=== PATIENT | male | born 1945 | race Caucasian/White ===

== ENCOUNTER 2018-03-11 17:22 | Inpatient (IN) | payer MEDICARE, OTHER ==
[~2018-03-11] VITALS: Ht 180.3 cm; Wt 64.0 kg
[2018-03-11 18:22] LABS: BASOPHILS % (AUTO) 0.3 % (0.0-2.0); HEMATOCRIT 36 % (39-51); HEMOGLOBIN 12.4 g/dL (13.5-17.5); LYMPHOCYTES # (AUTO) 0.9 /CMM (0.8-4.8); LYMPHOCYTES % (AUTO) 13.1 % (20.0-44.0); MEAN CORPUSCULAR HGB CONC 34 g/dl (31.0-36.0); MEAN CORPUSCULAR VOLUME 87 fL (80-96); MONOCYTES # (AUTO) 0.7 /CMM (0.1-1.30); NEUTROPHILS # (AUTO) 5.2 /CMM (1.8-8.9); NEUTROPHILS % (AUTO) 75.6 % (43.0-81.0); PLATELET COUNT (AUTO) 278 /CMM (150-450); RED BLOOD CELL COUNT(AUTO) 4.16 MIL/uL (4.5-6.0); WHITE BLOOD COUNT (AUTO) 6.9 K/uL (4.3-11.0)
[2018-03-11 18:33] LABS: CARBON DIOXIDE 29 mmol/L (21-32); CHLORIDE 103 mmol/L (98-107); CREATININE 0.7 mg/dL (0.6-1.3); GLUCOSE 105 mg/dL (74-106); POTASSIUM 3.7 mmol/L (3.5-5.1); SODIUM SERUM 139 mmol/L (136-145); UREA NITROGEN, BLOOD 18 mg/dL (7-18)
[2018-03-11 18:39] LABS: ALANINE AMINOTRANSFERASE 16 U/L (12-78); ALBUMIN 3.4 g/dL (3.4-5.0); ALCOHOL, BLOOD < 3 mg/dL (0-0); ALKALINE PHOSPHATASE 74 U/L (46-116); ASPARTATE AMINOTRANSFERASE 17 U/L (15-37); BILIRUBIN,DIRECT 0.2 mg/dL (0.0-0.2); BILIRUBIN,TOTAL 0.8 mg/dL (0.2-1.0); TOTAL PROTEIN, SERUM 6.8 g/dL (6.4-8.2)
[2018-03-11 18:40] LABS: ACETAMINOPHEN < 2 ug/ml (10-30); SALICYLATE < 2.8 mg/dL (2.8-20.0)
--- NOTE | 2018-03-11 19:12 | NUR ---
Note molina in ED - 03/11/18 at 1912 by WALTER BIBPA FROM [facility] D/T AGGRESSIVE BEHAVIOR, FOR 5150 Addendum: 03/11/18 at 1911 by WALTER Amendment molina in [facility] - 03/11/18 at 1912 by WALTER BIBPA FROM [facility] D/T AGGRESSIVE BEHAVIOR, FOR 5150
--- NOTE | 2018-03-11 19:18 | NUR ---
PT BIBPA FOR AGGRESSIVE BEHAVIOR FOR 4590
--- NOTE | 2018-03-11 19:24 | NUR ---
HANDOFF GIVEN TO BOSTON CRUZ FOR FURTHER CARE
--- NOTE | 2018-03-11 19:53 | NUR ---
UNABLE TO OBTAIN URINE. MADE AWARE.
[2018-03-11 20:00] VITALS: BP 126/46
--- NOTE | 2018-03-11 21:53 | NUR ---
REPORT GIVEN TO BOSTON VASQUEZ FOR DEQUAN
[2018-03-11] MEDS ORDERED: MAGNESIUM HYDROXIDE 30 ML UDC PO PRN (22:30)
[2018-03-11] MEDS ORDERED: MAG HYDROX/AL HYDROX/SIMETH 30 ML UDC PO PRN (22:30)
[2018-03-11] MEDS ORDERED: ACETAMINOPHEN 325 MG TABLET PO PRN (22:30)
[2018-03-11] MEDS ORDERED: HYDR-4075 PO (22:36)
[2018-03-11] MEDS ORDERED: LORA1TAB PO (22:36)
[2018-03-11] MEDS ORDERED: HALO5TAB8 PO (22:36)
[2018-03-11] MEDS ORDERED: HYDR25TA4 PO (22:36)
[2018-03-11] MEDS ORDERED: RIVA10TA PO (22:36)
[2018-03-11] MEDS ORDERED: BENZ1TAB7 PO (22:36)
[2018-03-11] MEDS ORDERED: DOCU100C36 PO (22:36)
[2018-03-11] MEDS ORDERED: SIMV20TA6 PO (22:36)
[2018-03-11] MEDS ORDERED: RIVA3CAP5 PO (22:36)
[2018-03-11] MEDS ORDERED: DIVA125C5 PO (22:36)
[2018-03-11] MEDS ORDERED: OLAN5TAB3 (22:36)
[2018-03-11] MEDS ORDERED: [UNRECOGNIZED DRUG - CODE] PO (22:36)
[2018-03-11] MEDS ORDERED: LISI-603 PO (22:36)
--- NOTE | 2018-03-11 23:30 | NUR ---
ADMISSION NOTES ADMITTED THIS 72 Y/O MALE PATIENT SOH ER AND INTIALLY FROM [facility] , PT IS ON 5150 HOLD , PER HOLD 5150 , GD DTO AND COMBATIVE, AGITATED, UNABLE TO SLEEP ,RESTLESS THE PT. WAS ACTING AGGRESSIVE AT THE FACILITY AND PUNCHED A STAFF MEMEBER ,AND PT. ATTEMPTED TO ESCAPE FROM THE FACILITY , UPON FACE TO FACE ASSESSMENT PATIENT IS A&O X-1 UNCOOPERTIVE, AGGRESSIVE FLAT AFFECT ,EASILY AGITATED , PT.IS POOR HISTORIAN, POOR INSIGHT ,POOR JUDGEMENT ,V/S WNL, NO ACUTE DISTRESS NOTED , MD AWARE AND NOTIFIED OF THE ADMISSION , ENCOURAGED PT. VERBALIZED ANY FEELING CONCERN TO STAFF, ORIENT TO UNIT POLICY, WILL CONTINUE TO MONITOR FOR Q15, CONTRACT FOR SAFETY AND BEHAVIOR.
[2018-03-12 00:11] VITALS: BP 130/72
[2018-03-12] MEDS ORDERED: DIVALPROEX SODIUM 125 MG CAP.SPRINK PO SCH (00:30)
--- NOTE | 2018-03-12 06:28 | NUR ---
GPS RN NOTES: PT. REFUSED TO PROVIDE URINE SPECIMEN , PT. CAME WITH MULTIPLE SKIN DISCOLORATION BRUISES NOTED, PICTURE TAKEN AND PLACED IN THE CHART. NO ACUTE DISTRESS NOTED , WILL ENDORSE TO ON COMING NURSE FOR CONTINUE OF CARE.
--- NOTE | 2018-03-12 06:52 | NUR ---
GPS RN NOTES: DURING SHIFT CHARGE NURSE [place] FOR DR. PARK CALLED X2 , WAITING CALLED BACK , ENDORSE TO ON COMING NURSE TO FOLLOW UP .
[2018-03-12 07:46] LABS: CHOLESTEROL 107 mg/dL (<200); HDL CHOLESTEROL 42 mg/dL (40-60); LDL 62 mg/dL (0-99); TRIGLYCERIDES 33 mg/dL (30-150)
[2018-03-12 07:49] LABS: CREATININE 0.7 mg/dL (0.6-1.3)
[2018-03-12 08:00] VITALS: BP 144/66
[2018-03-12] MEDS ORDERED: BENZTROPINE MESYLATE (1 MG) 1 MG TABLET PO SCH (09:00)
[2018-03-12] MEDS ORDERED: FELODIPINE 2.5 MG TAB.SR.24H PO SCH (09:00)
[2018-03-12] MEDS: RIVASTIGMINE TARTRATE 1.5 MG CAPSULE PO SCH ×3 (09:00→18:03)
--- NOTE | 2018-03-12 09:13 | NUR ---
WOUND CARE CONSULT: PT PRESENTS WITH DRY ABRASIONS AND SCABS TO EXTREMITIES AND LEFT EAR, PRESENT ON ADMISSION. RECOMMENDATIONS MADE FOR SKIN PROTECTION. DISCUSSED WITH NURSING STAFF. WILL SEE PRN. GOMEZ IN AGREEMENT WITH PLAN OF CARE. CURRENT VLAD SCORE IS 19. Addendum: 03/12/18 at 0915 by LIA PICKETT WNDNU Amended: Links added.
[2018-03-12] MEDS ORDERED: Z GUARD REMEDY 2 OZ OINT TP PRN (09:30)
[2018-03-12] MEDS: DOCUSATE SODIUM 100 MG CAPSULE PO SCH (09:38)
[2018-03-12] MEDS: LISINOPRIL (20MG) 20 MG TABLET PO SCH (09:38)
[2018-03-12] MEDS: hydrALAZINE HCL 10 MG TABLET PO PRN (09:39)
[2018-03-12] MEDS: RIVAROXABAN 10 MG TABLET PO SCH (09:39)
[2018-03-12] MEDS: HYDROCHLOROTHIAZIDE 25 MG TABLET PO SCH (09:45)
[2018-03-12] MEDS: Z GUARD REMEDY 2 OZ OINT TP SCH (10:15)
--- NOTE | 2018-03-12 13:30 | NUR ---
DAYANA called the pt's , Belia ([phone]), and discussed the initial treatment plan for the pt. Pt's stated that she would like for the pt to return to [facility] when he is cleared for discharge. DAYANA asked for the personal lines insurance advisor of the facility so that she could verify that the facility would be willing to accept the pt back.
--- NOTE | 2018-03-12 13:33 | NUR ---
DAYANA called Iris ([phone]), [facility] Elder Trimming Assembler, and inquired about whether or not the pt can return when he is cleared for discharge. She stated that he is and that she would like to be updated regarding his behaviors when we approach his discharge date.
[2018-03-12] MEDS: ESCITALOPRAM OXALATE (10 MG) 10 MG TABLET PO SCH (15:30)
[2018-03-12 16:00] VITALS: BP 107/77
[2018-03-12] MEDS: ZIPRASIDONE 20 MG CAPSULE PO SCH (17:00)
[2018-03-12 20:55] VITALS: BP 115/70
[2018-03-12] MEDS: SIMVASTATIN 20 MG TABLET PO SCH (21:16)
[2018-03-13] MEDS: ZOLPIDEM TARTRATE 5 MG TABLET PO PRN ×2 (01:56→22:38)
[2018-03-13 08:00] VITALS: BP 103/50
[2018-03-13] MEDS: RIVASTIGMINE TARTRATE 1.5 MG CAPSULE PO SCH ×2 (08:18→16:12)
[2018-03-13] MEDS: DOCUSATE SODIUM 100 MG CAPSULE PO SCH (08:18)
[2018-03-13] MEDS: ESCITALOPRAM OXALATE (10 MG) 10 MG TABLET PO SCH (08:18)
[2018-03-13] MEDS: ZIPRASIDONE 20 MG CAPSULE PO SCH ×2 (08:18→22:08)
[2018-03-13] MEDS: LISINOPRIL (20MG) 20 MG TABLET PO SCH (08:19)
[2018-03-13] MEDS: RIVAROXABAN 10 MG TABLET PO SCH (08:21)
[2018-03-13] MEDS: Z GUARD REMEDY 2 OZ OINT TP SCH (08:25)
[2018-03-13] MEDS: DIVALPROEX SODIUM 250 MG TABLET.DR PO SCH ×2 (08:26→13:00)
[2018-03-13] MEDS: HYDROCHLOROTHIAZIDE 25 MG TABLET PO SCH (09:00)
[2018-03-13] MEDS ORDERED: FELODIPINE 2.5 MG TAB.SR.24H PO SCH (09:00)
[2018-03-13] MEDS: AMLODIPINE BESYLATE 5 MG TABLET PO SCH (09:00)
--- NOTE | 2018-03-13 15:07 | NUR ---
Group note: Pt attended a group session on 03/13/18 at 11AM discussing the topic of what gives them meaning in their lives and what they are looking forward to once they get discharged from the hospital. S: Pt mumbled on and on about something that did not appear to be related to the discussion topic. O: Pt was present during the group session and was attentive. Pt did not participate in the discussion topic. Pt appeared to be in a euthymic mood and presented with a calm affect. A: It is unknown if the pt gained any insight from his presence in the group discussion. P: Pt will continue milieu treatment and medication stabilization.
[2018-03-13 16:00] VITALS: BP 121/80
[2018-03-13 19:59] VITALS: BP 123/70
[2018-03-13] MEDS: SIMVASTATIN 20 MG TABLET PO SCH (22:08)
[2018-03-14 08:00] VITALS: BP 153/73
[2018-03-14] MEDS: DOCUSATE SODIUM 100 MG CAPSULE PO SCH (08:28)
[2018-03-14] MEDS: RIVASTIGMINE TARTRATE 1.5 MG CAPSULE PO SCH ×2 (08:28→16:09)
[2018-03-14] MEDS: ESCITALOPRAM OXALATE (10 MG) 10 MG TABLET PO SCH (08:28)
[2018-03-14] MEDS: LISINOPRIL (20MG) 20 MG TABLET PO SCH (08:29)
[2018-03-14] MEDS: HYDROCHLOROTHIAZIDE 25 MG TABLET PO SCH (08:29)
[2018-03-14] MEDS: AMLODIPINE BESYLATE 5 MG TABLET PO SCH (08:29)
[2018-03-14] MEDS: RIVAROXABAN 10 MG TABLET PO SCH (08:30)
[2018-03-14] MEDS: Z GUARD REMEDY 2 OZ OINT TP SCH (08:35)
--- NOTE | 2018-03-14 10:58 | NUR ---
Initial Discharge Plan: Pt currently resides at [facility] located at [address] [place] [address]; ([phone]). Per Iris ([phone]), the research associate policy of [facility], stated that the pt can return there. Pt's , Belia ([phone]), stated she would like the pt to return as well. SW will work with the pt and the MD for appropriate discharge planning. SW will form a safe and proper discharge.
[2018-03-14 16:00] VITALS: BP 157/84
[2018-03-14] MEDS: hydrALAZINE HCL 10 MG TABLET PO PRN (16:09)
[2018-03-14 20:00] VITALS: BP 123/74
[2018-03-14] MEDS: LORAZEPAM 1 MG TABLET PO PRN (21:31)
[2018-03-14] MEDS: SIMVASTATIN 20 MG TABLET PO SCH (21:31)
[2018-03-14] MEDS: ZIPRASIDONE 20 MG CAPSULE PO SCH (21:31)
--- NOTE | 2018-03-14 22:09 | NUR ---
ATIVAN 1 MG TAB 1 PO GIVEN FOR ANXIETY.
[2018-03-15 08:00] VITALS: BP 151/76
[2018-03-15] MEDS: HYDROCHLOROTHIAZIDE 25 MG TABLET PO SCH (09:49)
[2018-03-15] MEDS: ESCITALOPRAM OXALATE (10 MG) 10 MG TABLET PO SCH (09:50)
[2018-03-15] MEDS: LISINOPRIL (20MG) 20 MG TABLET PO SCH (09:50)
[2018-03-15] MEDS: RIVASTIGMINE TARTRATE 1.5 MG CAPSULE PO SCH ×2 (09:50→16:31)
[2018-03-15] MEDS: DOCUSATE SODIUM 100 MG CAPSULE PO SCH (09:50)
[2018-03-15] MEDS: AMLODIPINE BESYLATE 5 MG TABLET PO SCH (09:50)
[2018-03-15] MEDS: Z GUARD REMEDY 2 OZ OINT TP SCH (09:51)
[2018-03-15] MEDS: RIVAROXABAN 10 MG TABLET PO SCH (09:58)
[2018-03-15 16:00] VITALS: BP 116/68
[2018-03-15 20:00] VITALS: BP 106/57
[2018-03-15] MEDS: SIMVASTATIN 20 MG TABLET PO SCH (21:11)
[2018-03-15] MEDS: ZIPRASIDONE 20 MG CAPSULE PO SCH (21:11)
[2018-03-15] MEDS: ZOLPIDEM TARTRATE 5 MG TABLET PO SCH (21:12)
[2018-03-16 08:00] VITALS: BP 117/60
[2018-03-16] MEDS: RIVASTIGMINE TARTRATE 1.5 MG CAPSULE PO SCH ×2 (08:31→16:38)
[2018-03-16] MEDS: DOCUSATE SODIUM 100 MG CAPSULE PO SCH (08:31)
[2018-03-16] MEDS: LISINOPRIL (20MG) 20 MG TABLET PO SCH (08:32)
[2018-03-16] MEDS: HYDROCHLOROTHIAZIDE 25 MG TABLET PO SCH (08:32)
[2018-03-16] MEDS: ESCITALOPRAM OXALATE (10 MG) 10 MG TABLET PO SCH (08:32)
[2018-03-16] MEDS: AMLODIPINE BESYLATE 5 MG TABLET PO SCH (08:32)
[2018-03-16] MEDS: RIVAROXABAN 10 MG TABLET PO SCH (08:36)
[2018-03-16] MEDS: Z GUARD REMEDY 2 OZ OINT TP SCH (08:37)
[2018-03-16 16:00] VITALS: BP 124/51
[2018-03-16 20:00] VITALS: BP 120/73
[2018-03-16] MEDS: SIMVASTATIN 20 MG TABLET PO SCH (22:14)
[2018-03-16] MEDS: ZOLPIDEM TARTRATE 5 MG TABLET PO SCH (22:14)
[2018-03-16] MEDS: ZIPRASIDONE 20 MG CAPSULE PO SCH (22:14)
[2018-03-17 08:00] VITALS: BP 154/88
[2018-03-17] MEDS: RIVAROXABAN 10 MG TABLET PO SCH (09:42)
[2018-03-17] MEDS: HYDROCHLOROTHIAZIDE 25 MG TABLET PO SCH (09:42)
[2018-03-17] MEDS: LISINOPRIL (20MG) 20 MG TABLET PO SCH (09:43)
[2018-03-17] MEDS: ESCITALOPRAM OXALATE (10 MG) 10 MG TABLET PO SCH (09:43)
[2018-03-17] MEDS: RIVASTIGMINE TARTRATE 1.5 MG CAPSULE PO SCH ×2 (09:43→16:44)
[2018-03-17] MEDS: DOCUSATE SODIUM 100 MG CAPSULE PO SCH (09:43)
[2018-03-17] MEDS: AMLODIPINE BESYLATE 5 MG TABLET PO SCH (09:45)
[2018-03-17] MEDS: Z GUARD REMEDY 2 OZ OINT TP SCH (09:46)
[2018-03-17 16:00] VITALS: BP 100/61
[2018-03-17 20:00] VITALS: BP 120/71
[2018-03-17] MEDS: ZIPRASIDONE 20 MG CAPSULE PO SCH (21:13)
[2018-03-17] MEDS: SIMVASTATIN 20 MG TABLET PO SCH (21:13)
[2018-03-17] MEDS: ZOLPIDEM TARTRATE 5 MG TABLET PO SCH (21:14)
[2018-03-18 08:00] VITALS: BP 147/80
[2018-03-18] MEDS: DOCUSATE SODIUM 100 MG CAPSULE PO SCH (08:13)
[2018-03-18] MEDS: RIVASTIGMINE TARTRATE 1.5 MG CAPSULE PO SCH ×2 (08:13→16:09)
[2018-03-18] MEDS: LISINOPRIL (20MG) 20 MG TABLET PO SCH (08:16)
[2018-03-18] MEDS: AMLODIPINE BESYLATE 5 MG TABLET PO SCH (08:16)
[2018-03-18] MEDS: ESCITALOPRAM OXALATE (10 MG) 10 MG TABLET PO SCH (08:17)
[2018-03-18] MEDS: RIVAROXABAN 10 MG TABLET PO SCH (08:18)
[2018-03-18] MEDS: HYDROCHLOROTHIAZIDE 25 MG TABLET PO SCH (08:20)
[2018-03-18] MEDS: Z GUARD REMEDY 2 OZ OINT TP SCH (08:24)
--- NOTE | 2018-03-18 10:00 | NUR ---
gps greens picker: notes noted right outer eye with a bruise (purple) 0.5cmx0.cm and above it noted with fading yellow discoloration when you light it close with a pen light. bruise appears old. cn aware and assessed site. photo taken. per drafter civil (cad) (sitter) the old fading bruise has been observed for days now. will continue to monitor. sitter remains at bedside.
[2018-03-18 16:00] VITALS: BP 126/66
--- NOTE | 2018-03-18 16:15 | NUR ---
GPS JAVA WEB USER INTERFACE DEVELOPER: NOTES MOVED PT TO GPS OV TO ROOM 205-1 WITH ALL BELONGINGS. REPORT GIVEN TO CHADWICK (RN) FOR CONTINUITY OF CARE.
--- NOTE | 2018-03-18 16:22 | NUR ---
GPS/OF. PT RECEIVED ALERT TO NAME, FOLLOWING BASIC COMMANDS. PT WITH 1:1. PT MADE COMFORTABLE. PT WITH CHART AND ALL BELONGINGS. WILL CONTINUE POC.
--- NOTE | 2018-03-18 16:23 | NUR ---
DAYANA called Iris ([phone]), [facility] Inspector Multifocal Lens, and left her a message stating that the SW was informed that the pt is discharging tomorrow and that someone from the facility was going to come and assess the pt. DAYANA asked for a call back so that she can plan the discharge accordingly.
--- NOTE | 2018-03-18 16:29 | NUR ---
DAYANA called the pt's , Belia ([phone]), and informed her that the pt may or may not be discharged tomorrow. She stated that she would follow up with the fur machine operator and let the SW know.
--- NOTE | 2018-03-18 18:23 | NUR ---
GPS OVF. PT REMAINS CONFUSED, WANDERING IN ROOM OR RESTING IN BED. PT NON VERBAL SINCE ARRIVAL. PT TOLERATING ROOM AIR AND IS WITHOUT OBVIOUS DISTRESS OR DISCOMFORT. PT WITH 1:1 FOR SAFETY. PT BED IN LOWEST LOCKED POSITION WITH HANDRIALSX2 AND CALL ONEIL WITHIN REACH. WILL ENDORSE TO NIGHT NURSE AT BEDSIDE FOR DEQUAN.
--- NOTE | 2018-03-18 19:30 | NUR ---
GPS OVERFLOW RN NOTE: PATIENT RESTING IN BED, NO ACUTE DISTRESS NOTED. BREATHING EVEN AND UNLABORED, NO SOB NOTED. SITTER AT BEDSIDE. PATIENT CALM AND COOPERATIVE AT THIS TIME. BED LOCKED AND IN LOWEST POSITION, CALL LIGHT IN REACH. WILL CONTINUE TO MONITOR.
[2018-03-18 20:00] VITALS: BP 121/71
[2018-03-18 20:30] VITALS: BP 121/71
[2018-03-18] MEDS: SIMVASTATIN 20 MG TABLET PO SCH (21:41)
[2018-03-18] MEDS: ZOLPIDEM TARTRATE 5 MG TABLET PO SCH (21:42)
--- NOTE | 2018-03-18 21:50 | NUR ---
GPS OVERFLOW RN NOTE: PATIENT MOVED TO ROOM 206-1, WITH ALL BELONGINGS, SITTER AT BEDSIDE. BED LOCKED AND IN LOWEST POSITION, CALL LIGHT IN REACH. WILL CONTINUE TO MONITOR.
[2018-03-18] MEDS ORDERED: ZIPRASIDONE 20 MG CAPSULE ONE (22:17)
[2018-03-18] MEDS: ZIPRASIDONE 20 MG CAPSULE PO SCH (22:25)
--- NOTE | 2018-03-19 06:20 | NUR ---
GPS OVERFLOW RN NOTE: PATIENT RESTING IN BED, NO ACUTE DISTRESS NOTED. BREATHING EVEN AND UNLABORED, NO SOB NOTED. SITTER AT BEDSIDE. PATIENT CALM AND COOPERATIVE AT THIS TIME. BED LOCKED AND IN LOWEST POSITION, CALL LIGHT IN REACH. WILL ENDORSE TO DAY NURSE TO CONTINUE WITH PLAN OF CARE.
[2018-03-19] MEDS: LORAZEPAM 1 MG TABLET PO PRN (07:32)
[2018-03-19] MEDS: AMLODIPINE BESYLATE 5 MG TABLET PO SCH (08:47)
[2018-03-19] MEDS: HYDROCHLOROTHIAZIDE 25 MG TABLET PO SCH (08:47)
[2018-03-19] MEDS: DOCUSATE SODIUM 100 MG CAPSULE PO SCH (08:47)
[2018-03-19] MEDS: RIVAROXABAN 10 MG TABLET PO SCH (08:47)
[2018-03-19] MEDS: ESCITALOPRAM OXALATE (10 MG) 10 MG TABLET PO SCH (08:47)
[2018-03-19] MEDS: Z GUARD REMEDY 2 OZ OINT TP SCH (08:48)
[2018-03-19] MEDS: LISINOPRIL (20MG) 20 MG TABLET PO SCH (08:48)
[2018-03-19 08:56] VITALS: BP 123/66
[2018-03-19] MEDS: RIVASTIGMINE TARTRATE 1.5 MG CAPSULE PO SCH (09:00)
--- NOTE | 2018-03-19 09:16 | NUR ---
Iris ([phone]), [facility] Elder Pharmacist Apprentice, left a message for the SW and stated that she was going to come and evaluate the pt before he can be discharged back to her facility. She stated that she would be arriving sometime after 12pm but that she will attempt to arrive earlier.
--- NOTE | 2018-03-19 13:00 | NUR ---
MS RN NOTES PATIENT WAS SEEN BY PSYCHIATRIST AND PATIENT WAS CLEARED FOR DISCHARGE. PATIENT ALERT, ORIENTED X2 SLEEPING. SITTER AT BEDSIDE. PATIENT WAS SEEN BY BEARING MAKER ARRANGED TRANSFORATION FOR 2:30-3:00, AWARE OF DISCHARGE. PATIENT DISCHARGED TO [facility]. INFORMATION PROVIDED FOR FOLLOW UP ANOINTMENTS WITH PSYCHIATRIST AND DECORATING SUPERVISOR. PATIENT DENIES ANY HOMICIDAL OR SUICIDAL IDEATION. BOARD AND CARE INFORMED OF DISCHARGE. PRESCRIPTION FAXED TO PATIENTS PHARMACY [facility] [phone]. WILL CONTINUE TO MONITOR. FOR DISCHARGE. PATIENT WAS CLEARED FROM HOLD.
--- NOTE | 2018-03-19 13:03 | NUR ---
DAYANA met with Iris ([phone]), [facility] Elder Surveyor, and pt's psychiatrist, Dr. Barraza, and the pt's discharge was discussed. It was decided that the pt will be discharging back to the facility today before 4pm. DAYANA will arrange the transportation and will make sure that the prescription is faxed to the appropriate pharmacy.
--- NOTE | 2018-03-19 13:07 | NUR ---
DAYANA called the pt's , Belia ([phone]), and informed her that the pt will be discharging today at around 4pm. She stated that she will not be able to oyster picker the pt and stated that she would be willing to pay for a medical transport. DAYANA informed her that she will arrange it and have them call her for the payment information.
--- NOTE | 2018-03-19 15:09 | NUR ---
DAYANA faxed a discharge packet to the pt's psychiatrist, Dr. Eli Barrzaa's office, to the fax number: [phone].
--- NOTE | 2018-03-19 15:12 | NUR ---
Discharge Note: Pt was discharged to [facility] (Board and Care) [place] [address] [place] [address]; ([phone]). Pt was transported via [facility] ([phone]) between 2:30-3pm. Pts , Belia ([phone]), was notified of this discharge. Pts prescription was faxed to [facility] to the fax number: [phone]. Upon discharge, the pt appeared to be in a euthymic mood and presented with a pleasant and calm affect. The pt denied both suicidal and homicidal ideation as well as auditory and visual hallucinations. Pt will continue to be under the care of his psychiatrist, Dr. Eli Barraza, located at [address] [facility] [address], [place] [address]; and his air drill operator, Dr. Balaji Tejeda, located at [address] [place] [address]; .
--- NOTE | 2018-03-19 15:28 | NUR ---
Discharge Note: Pt was discharged to [facility] (Board and Care) . Patient picked up by medical transportation. Patient alert, oriented x1 confused. Denies any pain or discomfort. Patient discharged to board and care with medical transport. Patient refused discharge pictures. Id band removed.
== END 2018-03-19 15:00 | disposition home or self-care (01) | DRG 885 ==
LOC: ER 17:22 → GPS 21:36 → GPSOV2 03-18 16:19
PROVIDERS: ADMIT Psychiatry & Neurology Psychiatry; ATTEND Psychiatry & Neurology Psychiatry
DX: F29 Unspecified psychosis not due to a substance or known physiological condition (principal); F01.50 Vascular dementia, unspecified severity, without behavioral disturbance, psychotic disturbance, mood disturbance, and anxiety; G93.41 Metabolic encephalopathy; E78.5 Hyperlipidemia, unspecified; I10 Essential (primary) hypertension; I25.10 Atherosclerotic heart disease of native coronary artery without angina pectoris; I48.2 Chronic atrial fibrillation; D63.8 Anemia in other chronic diseases classified elsewhere; Z73.6 Limitation of activities due to disability
CPT/HCPCS: 36415; 80048-TC; 80061-TC; 80076-TC; 82565-TC; 85025-TC; 87081-TC; G0480

== ENCOUNTER 2018-03-26 19:55 | Inpatient (IN) | payer MEDICARE, OTHER ==
[~2018-03-26] VITALS: Ht 172.7 cm; Wt 67.1 kg
[~2018-03-26 19:55] MED LIST: BENZ1TAB7 PO; DIVA125C5 PO; DOCU100C36 PO; HALO5TAB8 PO; HYDR-4075 PO; HYDR25TA4 PO; LISI-603 PO; LORA1TAB PO; OLAN5TAB3; RIVA10TA PO; RIVA3CAP5 PO; SIMV20TA6 PO; [UNRECOGNIZED DRUG - CODE] PO
--- NOTE | 2018-03-26 20:04 | NUR ---
PT SEVERINO FROM RESIDENTIAL; PER REPORT PT WAS AGGRESSIVE TOWARDS STAFF; PT AOX1, ANSWERS TO NAME, PT ON MONITOR, NAD NOTED, VSS, PENDING ER PROVIDER EVAL
--- NOTE | 2018-03-26 20:24 | NUR ---
1 TO 1 SITTER BEDSIDE WITH PT.
[2018-03-26 20:50] LABS: BASOPHILS % (AUTO) 0.5 % (0.0-2.0); EOSINOPHILS % (AUTO) 0.9 % (0.0-6.0); HEMATOCRIT 33 % (39-51); LYMPHOCYTES # (AUTO) 0.8 /CMM (0.8-4.8); LYMPHOCYTES % (AUTO) 14.4 % (20.0-44.0); MEAN CORPUSCULAR HGB CONC 33 g/dl (31.0-36.0); MEAN CORPUSCULAR VOLUME 89 fL (80-96); MONOCYTES # (AUTO) 0.6 /CMM (0.1-1.30); MONOCYTES % (AUTO) 11.6 % (2.0-12.0); NEUTROPHILS % (AUTO) 72.6 % (43.0-81.0); PLATELET COUNT (AUTO) 259 /CMM (150-450); RED BLOOD CELL COUNT(AUTO) 3.68 MIL/uL (4.5-6.0); WHITE BLOOD COUNT (AUTO) 5.5 K/uL (4.3-11.0)
--- NOTE | 2018-03-26 21:00 | NUR ---
URINE COLLECTED AND SENT TO LAB
[2018-03-26 21:02] LABS: CALCIUM, SERUM 8.8 mg/dL (8.5-10.1); CARBON DIOXIDE 29 mmol/L (21-32); CHLORIDE 104 mmol/L (98-107); CREATININE 0.6 mg/dL (0.6-1.3); GLUCOSE 106 mg/dL (74-106); POTASSIUM 3.7 mmol/L (3.5-5.1); SODIUM SERUM 140 mmol/L (136-145); UREA NITROGEN, BLOOD 21 mg/dL (7-18)
[2018-03-26 21:08] LABS: ALANINE AMINOTRANSFERASE 20 U/L (12-78); ALBUMIN 3.1 g/dL (3.4-5.0); ALCOHOL, BLOOD < 3 mg/dL (0-0); ALKALINE PHOSPHATASE 87 U/L (46-116); ASPARTATE AMINOTRANSFERASE 29 U/L (15-37); BILIRUBIN,DIRECT 0.2 mg/dL (0.0-0.2); BILIRUBIN,TOTAL 0.6 mg/dL (0.2-1.0); TOTAL PROTEIN, SERUM 6.2 g/dL (6.4-8.2)
[2018-03-26 21:09] LABS: ACETAMINOPHEN < 2 ug/ml (10-30); SALICYLATE < 2.8 mg/dL (2.8-20.0)
[2018-03-26 21:38] LABS: APPEARANCE,URINE Clear (CLEAR); BILIRUBIN,URINE SMALL (NEGATIVE); BLOOD, URINE Negative Ery/uL (NEGATIVE); COLOR,URINE Yellow (YELLOW); KETONES,URINE Trace (NEGATIVE); LEUKOCYTE ESTERASE ,URINE Negative (NEGATIVE); NITRITE, URINE Negative (NEGATIVE); PROTEIN,URINE Negative (NEGATIVE); UGLUCOSE Negative (NEGATIVE)
[2018-03-26 21:58] LABS: BACTERIA,URINE Rare /HPF (None Seen); RBC,URINE NONE SEEN /HPF (0-2); SQUAMOUS EPITHELIAL CELL,UR Few /HPF (None Seen); WBC,URINE NONE SEEN /HPF (0-3)
[2018-03-26] MEDS ORDERED: MAG HYDROX/AL HYDROX/SIMETH 30 ML UDC PO PRN (22:30)
[2018-03-26] MEDS ORDERED: MAGNESIUM HYDROXIDE 30 ML UDC PO PRN (22:30)
[2018-03-26] MEDS ORDERED: ACETAMINOPHEN 325 MG TABLET PO PRN (22:30)
[2018-03-26 23:00] VITALS: BP 130/79
[2018-03-26] MEDS ORDERED: LORAZEPAM 1 MG TABLET PO PRN (23:00)
--- NOTE | 2018-03-26 23:45 | NUR ---
GPS RN NOTES: PLACED CALLED [employer] , NOTIFIED FOREIGN CORRESPONDENT PASCUL NEW ADMIT MED RECON.
[2018-03-27] MEDS: ZOLPIDEM TARTRATE 10 MG TABLET PO SCH ×2 (01:09→22:51)
--- NOTE | 2018-03-27 01:26 | NUR ---
ADMISSION NOTES ADMITTED THIS 72 Y/O MALE PATIENT SOH ER AND INTIALLY FROM [facility] , PT IS ON 5150 HOLD , PER HOLD 5150 , GD DTO AND COMBATIVE, AGITATED, UNABLE TO SLEEP ,RESTLESS,TRIES TO WANDER OFF, WAS ACTING AGGRESSIVE AT THE FACILITY AND PUNCHED A STAFF MEMEBER ,AND PT. ATTEMPTED TO ESCAPE FROM THE FACILITY , UPON FACE TO FACE ASSESSMENT PATIENT IS A&O X-1 UNCOOPERTIVE, AGGRESSIVE FLAT AFFECT ,EASILY AGITATED , PT.IS POOR HISTORIAN, POOR INSIGHT ,POOR JUDGEMENT ,V/S WNL, NO ACUTE DISTRESS NOTED , MD AWARE AND NOTIFIED OF THE ADMISSION , ENCOURAGED PT. VERBALIZED ANY FEELING CONCERN TO STAFF, ORIENT TO UNIT POLICY, WILL CONTINUE TO MONITOR FOR Q15, CONTRACT FOR SAFETY AND BEHAVIOR.
--- NOTE | 2018-03-27 05:55 | NUR ---
Patient was placed on 1:1 sitter for high fall risk.
[2018-03-27 07:38] LABS: CREATININE 0.6 mg/dL (0.6-1.3)
[2018-03-27 07:40] LABS: CHOLESTEROL 89 mg/dL (<200); HDL CHOLESTEROL 42 mg/dL (40-60); LDL 44 mg/dL (0-99); TRIGLYCERIDES 31 mg/dL (30-150)
[2018-03-27 08:00] VITALS: BP 126/81
[2018-03-27] MEDS ORDERED: ZOLP5TAB8 PO (10:35)
[2018-03-27] MEDS ORDERED: RIVA1.5C7 PO (10:35)
[2018-03-27] MEDS ORDERED: MAGN400O21 PO (10:35)
[2018-03-27] MEDS ORDERED: ESCI10TA PO (10:35)
[2018-03-27] MEDS ORDERED: ACET325T53 PO (10:35)
[2018-03-27] MEDS ORDERED: MULT1TAB73 PO (10:35)
[2018-03-27] MEDS ORDERED: OLAN10TA3 PO ×2 (10:35)
[2018-03-27] MEDS ORDERED: ZIPR20CA2 PO (10:36)
--- NOTE | 2018-03-27 14:58 | NUR ---
I, Sheba Guevara MSW, attest to the patients previous psychosocial information dated on 03/14/18. Update On Events leading to Admission and Discharge Plan: Pt has returned to the geropsychiatric unit of the hospital within eight days of his previous discharge date (03/19/18) from the unit to [facility]. Per hold, the pt came from [facility] where he was aggressive towards his family members and caregiver and had threatened suicide. The current plan is to adjust the pts medications and stabilize him before discharging the pt back to [facility]. Per pt, he was unable to ascertain where he wanted to be discharged to due to his confusion. The pt appeared to be oriented x3 (time, place and self). The pt appeared to be in a dysphoric mood and presented as irritable and agitated. Pt appeared to be ambulatory, disheveled and inappropriately dressed. SW will work with the pt, the pts family and the MD regarding appropriate discharge planning. SW will form a safe and proper discharge.
--- NOTE | 2018-03-27 15:02 | NUR ---
DAYANA called the pt's , Belia ([phone]), who stated that she is currently in [place] right now and will not be returning until 04/17/18. She stated that her sister, Karissa Patterson ([phone]), would be the point of contact. She also stated that she went ahead and spoke to the permit specialist of the board and care, Iris ([phone]), who will be taking the pt back.
--- NOTE | 2018-03-27 15:10 | NUR ---
DAYANA called the pt's sister, Karissa Patterson ([phone]), and left her a message on her voicemail stating that the pt has returned to the hospital and that she is the point of contact since the pt's is in [place]. DAYANA stated that she would like to make contact so that she can be of service whenever necessary.
[2018-03-27] MEDS ORDERED: ACETAMINOPHEN 325 MG TABLET PO PRN (16:30)
[2018-03-27] MEDS: RIVASTIGMINE TARTRATE 1.5 MG CAPSULE PO SCH (16:53)
[2018-03-27 20:06] VITALS: BP 129/79
[2018-03-27] MEDS: OLANZAPINE 5 MG TABLET PO SCH (22:51)
[2018-03-27] MEDS: SIMVASTATIN 20 MG TABLET PO SCH (22:51)
[2018-03-28 08:00] VITALS: BP 145/82
[2018-03-28] MEDS: ESCITALOPRAM OXALATE (10 MG) 10 MG TABLET PO SCH (08:47)
[2018-03-28] MEDS: OLANZAPINE 2.5 MG TABLET PO SCH (08:47)
[2018-03-28] MEDS: MULTIVITAMINS,THERAGRAN 1 UDTAB TABLET PO SCH (08:47)
[2018-03-28] MEDS: RIVASTIGMINE TARTRATE 1.5 MG CAPSULE PO SCH ×2 (08:47→16:15)
[2018-03-28] MEDS: AMLODIPINE BESYLATE 5 MG TABLET PO SCH (08:48)
[2018-03-28] MEDS: LISINOPRIL (20MG) 20 MG TABLET PO SCH (08:48)
[2018-03-28] MEDS: DOCUSATE SODIUM 100 MG CAPSULE PO SCH (08:48)
[2018-03-28] MEDS: HYDROCHLOROTHIAZIDE 25 MG TABLET PO SCH (08:48)
[2018-03-28 16:00] VITALS: BP 121/75
[2018-03-28] MEDS: RIVAROXABAN 10 MG TABLET PO SCH (16:15)
--- NOTE | 2018-03-28 19:34 | NUR ---
GPS RN NOTE, RECEIVED PATIENT AWAKE AND IN BED NO S/S OR COMPLAINTS OF PAIN AT THIS TIME. PATIENT IS DISPLAYING NO S/S OF APPARENT DISTRESS AT THIS TIME. PATIENT BREATHING IS UNLABORED WITH EQUAL RISE AND FALL OF THE CHEST. PATIENT HAS A ONE TO ONE SITTER FOR HIGH FALL RISK. PATIENT IS ALERT AND ORIENTED X 1 ON ROOM AIR WITH A SPO2 0F 95%. PATIENT IS MED COMPLIANT, DISORGANIZED, DELUSIONAL, UNCOOPERATIVE, CONFUSED AT TIME, AND NEEDS REORIENTATION. PATIENT DENIES SUICIDE AND HOMICIDAL IDEATIONS AT THIS TIME. PATIENT ASSISTED WITH TURNING AND REPOSITIONING Q2HR AND PRN FOR COMFORT AND CIRCULATION. PATIENT HAS NO NEEDS AT THIS TIME. PATIENT EDUCATED ON THE USE OF THE CALL ONEIL. PATIENT BED SIDE RAILS ARE UP X 2 FOR SAFETY, BED IS LOCKED AND LOW. WILL CONTINUE TO MONITOR AND MAINTAIN SAFETY Q15 MIN WITH THE HELP OF STAFF.
[2018-03-28 20:00] VITALS: BP 145/63
[2018-03-28] MEDS: OLANZAPINE 5 MG TABLET PO SCH (21:55)
[2018-03-28] MEDS: SIMVASTATIN 20 MG TABLET PO SCH (21:55)
[2018-03-28] MEDS: ZOLPIDEM TARTRATE 10 MG TABLET PO SCH (21:55)
--- NOTE | 2018-03-28 21:55 | NUR ---
GPS RN NOTE, PATIENT HAS A COMPLAINT OF NOT BEING ABLE TO SLEEP AND IS REQUESTING AMBIEN AT THIS TIME. PATIENT VITAL SIGNS ARE STABLE. GAVE AMBIEN 10 MG PO HS ORDERED. WILL REASSESS FOR INSOMNIA AND I WILL CONTINUE TO MONITOR THIS PATIENT.
[2018-03-29 08:00] VITALS: BP 155/80
[2018-03-29] MEDS: HYDROCHLOROTHIAZIDE 25 MG TABLET PO SCH (09:08)
[2018-03-29] MEDS: ESCITALOPRAM OXALATE (10 MG) 10 MG TABLET PO SCH (09:08)
[2018-03-29] MEDS: LISINOPRIL (20MG) 20 MG TABLET PO SCH (09:08)
[2018-03-29] MEDS: RIVASTIGMINE TARTRATE 1.5 MG CAPSULE PO SCH ×2 (09:08→16:23)
[2018-03-29] MEDS: AMLODIPINE BESYLATE 5 MG TABLET PO SCH (09:08)
[2018-03-29] MEDS: MULTIVITAMINS,THERAGRAN 1 UDTAB TABLET PO SCH (09:08)
[2018-03-29] MEDS: OLANZAPINE 2.5 MG TABLET PO SCH (09:09)
[2018-03-29] MEDS: DOCUSATE SODIUM 100 MG CAPSULE PO SCH (09:09)
[2018-03-29 16:00] VITALS: BP 126/60
[2018-03-29] MEDS: RIVAROXABAN 10 MG TABLET PO SCH (16:23)
[2018-03-29] MEDS ORDERED: busPIRone 5 MG TABLET PO SCH (17:30)
[2018-03-29 20:00] VITALS: BP 136/72
[2018-03-29] MEDS: SIMVASTATIN 20 MG TABLET PO SCH (21:06)
[2018-03-29] MEDS: OLANZAPINE 5 MG TABLET PO SCH (21:06)
[2018-03-29] MEDS: ZOLPIDEM TARTRATE 10 MG TABLET PO SCH (21:06)
[2018-03-30 08:00] VITALS: BP 113/59
[2018-03-30] MEDS: LISINOPRIL (20MG) 20 MG TABLET PO SCH (10:52)
[2018-03-30] MEDS: RIVASTIGMINE TARTRATE 1.5 MG CAPSULE PO SCH ×2 (10:52→18:13)
[2018-03-30] MEDS: MULTIVITAMINS,THERAGRAN 1 UDTAB TABLET PO SCH (10:53)
[2018-03-30] MEDS: ESCITALOPRAM OXALATE (10 MG) 10 MG TABLET PO SCH (10:53)
[2018-03-30] MEDS: AMLODIPINE BESYLATE 5 MG TABLET PO SCH (10:53)
[2018-03-30] MEDS: DOCUSATE SODIUM 100 MG CAPSULE PO SCH (10:53)
[2018-03-30] MEDS: OLANZAPINE 2.5 MG TABLET PO SCH (10:53)
[2018-03-30] MEDS: HYDROCHLOROTHIAZIDE 25 MG TABLET PO SCH (10:54)
[2018-03-30 16:00] VITALS: BP 102/60
[2018-03-30] MEDS: RIVAROXABAN 10 MG TABLET PO SCH (18:13)
--- NOTE | 2018-03-30 18:43 | NUR ---
RN NOTES NOTED BLOOD IN PATIENT URINE. CALLED JACLYN SECTION CHIEF AND GET TO ORDER, CBC IN THE MORNING, AND MONITOR. ORDER TAKEN AND CARRIED OUT.
[2018-03-30 20:00] VITALS: BP 121/70
[2018-03-30] MEDS ORDERED: TRAZODONE 50 MG TABLET PO SCH (22:00)
[2018-03-30] MEDS ORDERED: OLANZAPINE 2.5 MG TABLET PO SCH (22:00)
[2018-03-30] MEDS: SIMVASTATIN 20 MG TABLET PO SCH (22:16)
[2018-03-30] MEDS: ZOLPIDEM TARTRATE 10 MG TABLET PO SCH (22:16)
[2018-03-31 08:00] VITALS: BP 108/59
[2018-03-31 08:13] LABS: BASOPHILS % (AUTO) 0.3 % (0.0-2.0); EOSINOPHILS % (AUTO) 1.7 % (0.0-6.0); HEMATOCRIT 35 % (39-51); HEMOGLOBIN 11.8 g/dL (13.5-17.5); LYMPHOCYTES # (AUTO) 0.6 /CMM (0.8-4.8); LYMPHOCYTES % (AUTO) 12.5 % (20.0-44.0); MEAN CORPUSCULAR HGB CONC 34 g/dl (31.0-36.0); MEAN CORPUSCULAR VOLUME 88 fL (80-96); MONOCYTES # (AUTO) 0.4 /CMM (0.1-1.30); MONOCYTES % (AUTO) 9.5 % (2.0-12.0); NEUTROPHILS # (AUTO) 3.6 /CMM (1.8-8.9); PLATELET COUNT (AUTO) 224 /CMM (150-450); RED BLOOD CELL COUNT(AUTO) 3.92 MIL/uL (4.5-6.0); WHITE BLOOD COUNT (AUTO) 4.7 K/uL (4.3-11.0)
[2018-03-31] MEDS: LISINOPRIL (20MG) 20 MG TABLET PO SCH (09:00)
[2018-03-31] MEDS: HYDROCHLOROTHIAZIDE 25 MG TABLET PO SCH (09:00)
[2018-03-31] MEDS: AMLODIPINE BESYLATE 5 MG TABLET PO SCH (09:00)
[2018-03-31] MEDS: MULTIVITAMINS,THERAGRAN 1 UDTAB TABLET PO SCH (09:36)
[2018-03-31] MEDS: DOCUSATE SODIUM 100 MG CAPSULE PO SCH (09:36)
[2018-03-31] MEDS: OLANZAPINE 2.5 MG TABLET PO SCH ×2 (09:36→16:30)
[2018-03-31] MEDS: ESCITALOPRAM OXALATE (10 MG) 10 MG TABLET PO SCH (09:36)
[2018-03-31] MEDS: RIVASTIGMINE TARTRATE 1.5 MG CAPSULE PO SCH ×2 (09:40→16:30)
[2018-03-31 16:00] VITALS: BP 135/65
[2018-03-31] MEDS: RIVAROXABAN 10 MG TABLET PO SCH (16:34)
[2018-03-31 20:00] VITALS: BP 120/68
[2018-03-31] MEDS: SIMVASTATIN 20 MG TABLET PO SCH (21:46)
[2018-03-31] MEDS: TRAZODONE 50 MG TABLET PO SCH (21:47)
[2018-03-31] MEDS: ZOLPIDEM TARTRATE 10 MG TABLET PO SCH (21:47)
[2018-04-01] MEDS: HYDROCHLOROTHIAZIDE 25 MG TABLET PO SCH (08:10)
[2018-04-01] MEDS: DOCUSATE SODIUM 100 MG CAPSULE PO SCH (08:10)
[2018-04-01] MEDS: MULTIVITAMINS,THERAGRAN 1 UDTAB TABLET PO SCH (08:10)
[2018-04-01] MEDS: RIVASTIGMINE TARTRATE 1.5 MG CAPSULE PO SCH ×2 (08:10→16:32)
[2018-04-01] MEDS: AMLODIPINE BESYLATE 5 MG TABLET PO SCH (08:11)
[2018-04-01] MEDS: OLANZAPINE 2.5 MG TABLET PO SCH ×2 (08:11→16:32)
[2018-04-01] MEDS: LISINOPRIL (20MG) 20 MG TABLET PO SCH (08:11)
[2018-04-01] MEDS: ESCITALOPRAM OXALATE (10 MG) 10 MG TABLET PO SCH (08:12)
[2018-04-01 08:28] VITALS: BP 127/76
--- NOTE | 2018-04-01 12:20 | NUR ---
WOUND CARE CONSULT: PT PRESENTS AMBULATORY AND CONTINENT WITH FRAGILE HEALING AREA TO LEFT ELBOW, PRESENT ON ADMISSION A SCAB. RECOMMENDATIONS MADE FOR SKIN PROTECTION AND DISCUSSED WITH NURSING STAFF. WILL SEE PRN. GOMEZ IN AGREEMENT WITH PLAN OF CARE. CURRENT VLAD SCORE IS 19. Addendum: 04/01/18 at 1221 by LIA PICKETT WNDNU Amended: Links added.
[2018-04-01 16:00] VITALS: BP 114/67
[2018-04-01] MEDS: RIVAROXABAN 10 MG TABLET PO SCH (16:32)
[2018-04-01 20:00] VITALS: BP 120/69
[2018-04-01] MEDS: TRAZODONE 50 MG TABLET PO SCH (22:00)
[2018-04-01] MEDS: ZOLPIDEM TARTRATE 10 MG TABLET PO SCH (22:00)
[2018-04-01] MEDS: SIMVASTATIN 20 MG TABLET PO SCH (22:00)
--- NOTE | 2018-04-02 06:55 | NUR ---
GPS RN NOTE PATIENT NOTED WITH FOUL ODOR OF URINE IN THE FLOOR, ORANGE LOOKING, WILL ENDORSE TO THE NEXT SHIFT TO CONTINUE TO MONITOR AND GET URINE FOR UA AND NOTIFY THE ROUNDING MD IN AM
[2018-04-02 08:00] VITALS: BP 132/64
[2018-04-02] MEDS: MULTIVITAMINS,THERAGRAN 1 UDTAB TABLET PO SCH (09:15)
[2018-04-02] MEDS: ESCITALOPRAM OXALATE (10 MG) 10 MG TABLET PO SCH (09:15)
[2018-04-02] MEDS: RIVASTIGMINE TARTRATE 1.5 MG CAPSULE PO SCH ×2 (09:15→18:25)
[2018-04-02] MEDS: HYDROCHLOROTHIAZIDE 25 MG TABLET PO SCH (09:16)
[2018-04-02] MEDS: DOCUSATE SODIUM 100 MG CAPSULE PO SCH (09:16)
[2018-04-02] MEDS: OLANZAPINE 2.5 MG TABLET PO SCH ×2 (09:16→18:25)
--- NOTE | 2018-04-02 12:04 | NUR ---
DAYNAA called Iris ([phone]), [facility] Elder Diamond Die Polisher, and confirmed that the pt can return to the [facility] Elderly Board and Care. Iris stated that once the pt is stable and is sleeping through the night the pt can return to the facility.
--- NOTE | 2018-04-02 12:08 | NUR ---
DAYANA called the pt's sister in law, Karissa Patterson ([phone]), and informed her that the SW has confirmed with [facility] that the pt will be returning when he is stable and that as of right we do not have a discharge date. Pt's sister in law asked about the pt's current state and progress and SW did her best to answer her questions according to the reports she has been given as well as the notes in the system.
[2018-04-02 13:31] LABS: APPEARANCE,URINE CLOUDY (CLEAR); BILIRUBIN,URINE NEGATIVE (NEGATIVE); BLOOD, URINE 3+ Ery/uL (NEGATIVE); KETONES,URINE NEGATIVE (NEGATIVE); LEUKOCYTE ESTERASE ,URINE 1+ (NEGATIVE); NITRITE, URINE NEGATIVE (NEGATIVE); PROTEIN,URINE 2+ mg/dl (NEGATIVE); UGLUCOSE NEGATIVE (NEGATIVE)
[2018-04-02 13:35] LABS: COLOR,URINE DARK YELLOW (YELLOW)
[2018-04-02 13:40] LABS: BACTERIA,URINE Moderate /HPF (None Seen); RBC,URINE TOO NUMEROUS TO COUN /HPF (0-2); SQUAMOUS EPITHELIAL CELL,UR Rare /HPF (None Seen); WBC,URINE 21-50 /HPF (0-3)
[2018-04-02] MEDS: LISINOPRIL (20MG) 20 MG TABLET PO SCH (14:44)
[2018-04-02] MEDS: AMLODIPINE BESYLATE 5 MG TABLET PO SCH (14:45)
[2018-04-02 16:09] VITALS: BP 133/78
--- NOTE | 2018-04-02 18:00 | NUR ---
DR. HOLT CONTACTED REGARDING BLOOD IN URINE-SPECIMEN SENT.TO ENDORSE FINDINGS TO [facility] NURSE.
[2018-04-02] MEDS: RIVAROXABAN 10 MG TABLET PO SCH (18:26)
[2018-04-02] MEDS: SIMVASTATIN 20 MG TABLET PO SCH (21:34)
[2018-04-02] MEDS: CEPHALEXIN MONOHYDRATE 500 MG CAPSULE PO SCH (21:34)
[2018-04-02] MEDS: ZOLPIDEM TARTRATE 10 MG TABLET PO SCH (21:35)
[2018-04-02] MEDS: TRAZODONE 50 MG TABLET PO SCH (21:35)
[2018-04-03 08:00] VITALS: BP 102/77
[2018-04-03] MEDS: DOCUSATE SODIUM 100 MG CAPSULE PO SCH (08:30)
[2018-04-03] MEDS: RIVASTIGMINE TARTRATE 1.5 MG CAPSULE PO SCH ×2 (08:31→17:27)
[2018-04-03] MEDS: AMLODIPINE BESYLATE 5 MG TABLET PO SCH (08:31)
[2018-04-03] MEDS: ESCITALOPRAM OXALATE (10 MG) 10 MG TABLET PO SCH (08:32)
[2018-04-03] MEDS: HYDROCHLOROTHIAZIDE 25 MG TABLET PO SCH (08:33)
[2018-04-03] MEDS: LISINOPRIL (20MG) 20 MG TABLET PO SCH (08:33)
[2018-04-03] MEDS: MULTIVITAMINS,THERAGRAN 1 UDTAB TABLET PO SCH (08:34)
[2018-04-03] MEDS: CEPHALEXIN MONOHYDRATE 500 MG CAPSULE PO SCH ×2 (08:34→22:01)
[2018-04-03] MEDS: OLANZAPINE 2.5 MG TABLET PO SCH ×2 (08:38→17:26)
[2018-04-03 16:00] VITALS: BP 122/68
[2018-04-03] MEDS: RIVAROXABAN 10 MG TABLET PO SCH (17:28)
[2018-04-03 20:34] VITALS: BP 138/74
[2018-04-03] MEDS: TRAZODONE 50 MG TABLET PO SCH (22:02)
[2018-04-03] MEDS: ZOLPIDEM TARTRATE 10 MG TABLET PO SCH (22:02)
[2018-04-03] MEDS: SIMVASTATIN 20 MG TABLET PO SCH (22:02)
--- NOTE | 2018-04-03 22:13 | NUR ---
GPS-RN NOTES: ADMINISTERED AMBIEN 5MG PO ORDERED FOR INSOMNIA, AND WASTED 5MG IN MED DISPOSAL AND WITNESSED BY RN FATUMA.
[2018-04-04 08:00] VITALS: BP 110/63
[2018-04-04] MEDS: HYDROCHLOROTHIAZIDE 25 MG TABLET PO SCH (09:00)
[2018-04-04] MEDS: CEPHALEXIN MONOHYDRATE 500 MG CAPSULE PO SCH ×2 (09:00→21:04)
[2018-04-04] MEDS: RIVASTIGMINE TARTRATE 1.5 MG CAPSULE PO SCH ×2 (09:00→16:09)
[2018-04-04] MEDS: OLANZAPINE 2.5 MG TABLET PO SCH ×2 (09:00→16:09)
[2018-04-04] MEDS: ESCITALOPRAM OXALATE (10 MG) 10 MG TABLET PO SCH (09:00)
[2018-04-04] MEDS: LISINOPRIL (20MG) 20 MG TABLET PO SCH (09:00)
[2018-04-04] MEDS: AMLODIPINE BESYLATE 5 MG TABLET PO SCH (09:00)
[2018-04-04] MEDS: MULTIVITAMINS,THERAGRAN 1 UDTAB TABLET PO SCH (09:00)
[2018-04-04] MEDS: DOCUSATE SODIUM 100 MG CAPSULE PO SCH (09:00)
--- NOTE | 2018-04-04 10:15 | NUR ---
GPS/RN-NOTES ALL 0900AM MEDICATIONS WAS HELD ,PATIENT WAS TOO SEDATED.
[2018-04-04 16:00] VITALS: BP 131/72
[2018-04-04] MEDS: RIVAROXABAN 10 MG TABLET PO SCH (16:20)
[2018-04-04 20:00] VITALS: BP 120/69
[2018-04-04] MEDS: ZOLPIDEM TARTRATE 10 MG TABLET PO SCH (21:03)
[2018-04-04] MEDS: TRAZODONE 50 MG TABLET PO SCH (21:03)
[2018-04-04] MEDS: SIMVASTATIN 20 MG TABLET PO SCH (21:04)
[2018-04-05 08:00] VITALS: BP 136/61
[2018-04-05] MEDS: CEPHALEXIN MONOHYDRATE 500 MG CAPSULE PO SCH ×2 (08:38→21:42)
[2018-04-05] MEDS: RIVASTIGMINE TARTRATE 1.5 MG CAPSULE PO SCH ×2 (08:38→16:24)
[2018-04-05] MEDS: ESCITALOPRAM OXALATE (10 MG) 10 MG TABLET PO SCH (08:39)
[2018-04-05] MEDS: MULTIVITAMINS,THERAGRAN 1 UDTAB TABLET PO SCH (08:39)
[2018-04-05] MEDS: OLANZAPINE 2.5 MG TABLET PO SCH ×2 (08:39→16:24)
[2018-04-05] MEDS: AMLODIPINE BESYLATE 5 MG TABLET PO SCH (08:39)
[2018-04-05] MEDS: HYDROCHLOROTHIAZIDE 25 MG TABLET PO SCH ×2 (08:40→16:24)
[2018-04-05] MEDS: DOCUSATE SODIUM 100 MG CAPSULE PO SCH (08:40)
[2018-04-05] MEDS: LISINOPRIL (20MG) 20 MG TABLET PO SCH ×2 (08:41→16:24)
[2018-04-05 16:00] VITALS: BP 154/91
[2018-04-05] MEDS: RIVAROXABAN 10 MG TABLET PO SCH (16:25)
[2018-04-05 20:00] VITALS: BP 153/76
[2018-04-05] MEDS: ZOLPIDEM TARTRATE 10 MG TABLET PO SCH (21:42)
[2018-04-05] MEDS: TRAZODONE 50 MG TABLET PO SCH (21:42)
[2018-04-05] MEDS: SIMVASTATIN 20 MG TABLET PO SCH (21:44)
[2018-04-06 08:00] VITALS: BP 110/65
[2018-04-06] MEDS: CEPHALEXIN MONOHYDRATE 500 MG CAPSULE PO SCH (08:56)
[2018-04-06] MEDS: DOCUSATE SODIUM 100 MG CAPSULE PO SCH (08:56)
[2018-04-06] MEDS: ESCITALOPRAM OXALATE (10 MG) 10 MG TABLET PO SCH (08:56)
[2018-04-06] MEDS: HYDROCHLOROTHIAZIDE 25 MG TABLET PO SCH (08:56)
[2018-04-06] MEDS: OLANZAPINE 2.5 MG TABLET PO SCH ×2 (08:56→17:06)
[2018-04-06] MEDS: RIVASTIGMINE TARTRATE 1.5 MG CAPSULE PO SCH ×2 (08:56→17:07)
[2018-04-06] MEDS: MULTIVITAMINS,THERAGRAN 1 UDTAB TABLET PO SCH (08:56)
[2018-04-06] MEDS: AMLODIPINE BESYLATE 5 MG TABLET PO SCH (08:57)
[2018-04-06] MEDS: LISINOPRIL (20MG) 20 MG TABLET PO SCH (09:00)
[2018-04-06] MEDS ORDERED: CIPROFLOXACIN HCL 250 MG TABLET PO SCH (13:00)
[2018-04-06 16:00] VITALS: BP 143/90
[2018-04-06] MEDS: RIVAROXABAN 10 MG TABLET PO SCH (17:08)
[2018-04-06 20:00] VITALS: BP 125/66
[2018-04-06] MEDS: CIPROFLOXACIN HCL 500 MG TABLET PO SCH (21:21)
[2018-04-06] MEDS: TRAZODONE 50 MG TABLET PO SCH (21:22)
[2018-04-06] MEDS: SIMVASTATIN 20 MG TABLET PO SCH (21:22)
[2018-04-06] MEDS: ZOLPIDEM TARTRATE 10 MG TABLET PO SCH (21:22)
--- NOTE | 2018-04-06 21:22 | NUR ---
GPS RN NOTE, PATIENT HAS A COMPLAINT OF NOT BEING ABLE TO SLEEP AND IS REQUESTING AMBIEN AT THIS TIME. PATIENT VITAL SIGNS ARE STABLE. GAVE AMBIEN 5 MG PO HS ORDERED. WILL REASSESS FOR INSOMNIA AND I WILL CONTINUE TO MONITOR THIS PATIENT.
[2018-04-07 08:00] VITALS: BP 154/80
[2018-04-07] MEDS: ESCITALOPRAM OXALATE (10 MG) 10 MG TABLET PO SCH (09:00)
[2018-04-07] MEDS: HYDROCHLOROTHIAZIDE 25 MG TABLET PO SCH (09:00)
[2018-04-07] MEDS: AMLODIPINE BESYLATE 5 MG TABLET PO SCH (09:00)
[2018-04-07] MEDS: LISINOPRIL (20MG) 20 MG TABLET PO SCH (09:00)
[2018-04-07] MEDS: MULTIVITAMINS,THERAGRAN 1 UDTAB TABLET PO SCH (09:00)
[2018-04-07] MEDS: RIVASTIGMINE TARTRATE 1.5 MG CAPSULE PO SCH ×2 (09:00→17:00)
[2018-04-07] MEDS: CIPROFLOXACIN HCL 500 MG TABLET PO SCH ×2 (09:00→22:00)
[2018-04-07] MEDS: DOCUSATE SODIUM 100 MG CAPSULE PO SCH (09:00)
[2018-04-07] MEDS: OLANZAPINE 2.5 MG TABLET PO SCH ×2 (09:00→18:11)
[2018-04-07 16:00] VITALS: BP 128/88
[2018-04-07] MEDS: RIVAROXABAN 10 MG TABLET PO SCH (18:12)
[2018-04-07 20:00] VITALS: BP 130/76
[2018-04-07 20:12] VITALS: BP 130/76
[2018-04-07] MEDS: SIMVASTATIN 20 MG TABLET PO SCH (22:01)
[2018-04-07] MEDS: TRAZODONE 50 MG TABLET PO SCH (22:01)
[2018-04-07] MEDS: ZOLPIDEM TARTRATE 10 MG TABLET PO SCH (22:02)
[2018-04-08 08:00] VITALS: BP 146/86
[2018-04-08] MEDS: CIPROFLOXACIN HCL 500 MG TABLET PO SCH ×2 (09:53→21:34)
[2018-04-08] MEDS: DOCUSATE SODIUM 100 MG CAPSULE PO SCH (09:54)
[2018-04-08] MEDS: HYDROCHLOROTHIAZIDE 25 MG TABLET PO SCH (09:54)
[2018-04-08] MEDS: ESCITALOPRAM OXALATE (10 MG) 10 MG TABLET PO SCH (09:54)
[2018-04-08] MEDS: AMLODIPINE BESYLATE 5 MG TABLET PO SCH (09:55)
[2018-04-08] MEDS: LISINOPRIL (20MG) 20 MG TABLET PO SCH (09:55)
[2018-04-08] MEDS: OLANZAPINE 2.5 MG TABLET PO SCH ×2 (09:55→17:59)
[2018-04-08] MEDS: MULTIVITAMINS,THERAGRAN 1 UDTAB TABLET PO SCH (09:56)
[2018-04-08] MEDS: RIVASTIGMINE TARTRATE 1.5 MG CAPSULE PO SCH ×2 (09:56→17:10)
[2018-04-08 16:00] VITALS: BP 128/69
[2018-04-08] MEDS: RIVAROXABAN 10 MG TABLET PO SCH (17:13)
--- NOTE | 2018-04-08 17:59 | NUR ---
RN-CO: PATIENT WAS SEEN AND EXAMINED BY DR PARK WITH ORDER TO DISCONTINUE 1:1 IN AM. NOTED.
[2018-04-08 20:06] VITALS: BP 149/73
[2018-04-08] MEDS: TRAZODONE 50 MG TABLET PO SCH (21:34)
[2018-04-08] MEDS: SIMVASTATIN 20 MG TABLET PO SCH (21:34)
[2018-04-08] MEDS: ZOLPIDEM TARTRATE 10 MG TABLET PO SCH (21:35)
[2018-04-09 08:00] VITALS: BP 134/87
[2018-04-09] MEDS: AMLODIPINE BESYLATE 5 MG TABLET PO SCH (09:00)
[2018-04-09] MEDS: CIPROFLOXACIN HCL 500 MG TABLET PO SCH ×2 (10:44→21:00)
[2018-04-09] MEDS: OLANZAPINE 2.5 MG TABLET PO SCH ×2 (10:44→17:17)
[2018-04-09] MEDS: MULTIVITAMINS,THERAGRAN 1 UDTAB TABLET PO SCH (10:45)
[2018-04-09] MEDS: HYDROCHLOROTHIAZIDE 25 MG TABLET PO SCH (10:45)
[2018-04-09] MEDS: RIVASTIGMINE TARTRATE 1.5 MG CAPSULE PO SCH ×2 (10:46→17:18)
[2018-04-09] MEDS: ESCITALOPRAM OXALATE (10 MG) 10 MG TABLET PO SCH (10:46)
[2018-04-09] MEDS: LISINOPRIL (20MG) 20 MG TABLET PO SCH (10:46)
--- NOTE | 2018-04-09 10:46 | NUR ---
SW received a call from the pt's sister in law, Karissa Patterson ([phone]), who stated that she is not sure that the pt should return back to [facility] because he has been in and out of hospitals three times in the past few months. She stated that she did not think that the pt should be subjected to this constant change of environment and stated that he may need a higher level of care. DAYANA stated that she understands the concern and that she will pass the message along to the psychiatrist but for right now the professional opinion is that he does not require a higher level of care once the medications are adjusted appropriately.
[2018-04-09] MEDS: DOCUSATE SODIUM 100 MG CAPSULE PO SCH (10:47)
--- NOTE | 2018-04-09 10:51 | NUR ---
DAYANA called Iris ([phone]), [facility] Manager, stated that she came to assess the pt yesterday and would like to assure that the pt has the appropriate medications and that he will be able to sleep through the night. DAYANA informed her that the 1:1 was discontinued and that the pt will be evaluated on his progress today. DAYANA stated she would call back tomorrow with an update.
[2018-04-09 16:00] VITALS: BP 132/77
[2018-04-09] MEDS: RIVAROXABAN 10 MG TABLET PO SCH (17:18)
[2018-04-09 21:38] VITALS: BP 131/52
[2018-04-09] MEDS: clonazePAM 1 MG TABLET PO SCH (22:00)
[2018-04-09] MEDS: TRAZODONE 50 MG TABLET PO SCH (22:00)
[2018-04-09] MEDS: SIMVASTATIN 20 MG TABLET PO SCH (22:00)
[2018-04-10 08:00] VITALS: BP 145/81
[2018-04-10] MEDS: AMLODIPINE BESYLATE 5 MG TABLET PO SCH (09:00)
[2018-04-10] MEDS: ESCITALOPRAM OXALATE (10 MG) 10 MG TABLET PO SCH (09:00)
[2018-04-10] MEDS: OLANZAPINE 2.5 MG TABLET PO SCH ×2 (09:00→17:36)
[2018-04-10] MEDS: HYDROCHLOROTHIAZIDE 25 MG TABLET PO SCH (09:00)
[2018-04-10] MEDS: MULTIVITAMINS,THERAGRAN 1 UDTAB TABLET PO SCH (09:00)
[2018-04-10] MEDS: LISINOPRIL (20MG) 20 MG TABLET PO SCH (09:00)
[2018-04-10] MEDS: DOCUSATE SODIUM 100 MG CAPSULE PO SCH (09:00)
[2018-04-10] MEDS: RIVASTIGMINE TARTRATE 1.5 MG CAPSULE PO SCH ×2 (09:00→17:36)
[2018-04-10] MEDS: CIPROFLOXACIN HCL 500 MG TABLET PO SCH ×2 (09:00→21:07)
[2018-04-10 16:00] VITALS: BP 123/70
[2018-04-10] MEDS: RIVAROXABAN 10 MG TABLET PO SCH (17:35)
[2018-04-10 20:18] VITALS: BP 119/69
[2018-04-10] MEDS: clonazePAM 1 MG TABLET PO SCH (21:08)
[2018-04-10] MEDS: TRAZODONE 50 MG TABLET PO SCH (21:08)
[2018-04-10] MEDS: SIMVASTATIN 20 MG TABLET PO SCH (21:08)
[2018-04-11 08:00] VITALS: BP 139/82
[2018-04-11] MEDS: OLANZAPINE 2.5 MG TABLET PO SCH ×2 (08:42→16:28)
[2018-04-11] MEDS: CIPROFLOXACIN HCL 500 MG TABLET PO SCH ×2 (08:42→21:12)
[2018-04-11] MEDS: DOCUSATE SODIUM 100 MG CAPSULE PO SCH (08:42)
[2018-04-11] MEDS: RIVASTIGMINE TARTRATE 1.5 MG CAPSULE PO SCH ×2 (08:42→16:36)
[2018-04-11] MEDS: HYDROCHLOROTHIAZIDE 25 MG TABLET PO SCH (08:43)
[2018-04-11] MEDS: LISINOPRIL (20MG) 20 MG TABLET PO SCH (08:43)
[2018-04-11] MEDS: ESCITALOPRAM OXALATE (10 MG) 10 MG TABLET PO SCH (08:44)
[2018-04-11] MEDS: AMLODIPINE BESYLATE 5 MG TABLET PO SCH (08:44)
[2018-04-11] MEDS: MULTIVITAMINS,THERAGRAN 1 UDTAB TABLET PO SCH (08:44)
--- NOTE | 2018-04-11 10:00 | NUR ---
DAYANA called Iris ([phone]), [facility] Manager, and informed her that the psychiatrist would like the pt to be discharged tomorrow. She stated that she would like the pt's medications to be faxed to his pharmacy ahead of time so that he can have his medications by the time he arrives. Iris also asked the SW how many hours the pt slept last night and the SW looked at the nursing notes and stated that the pt slept for 4 hours.
--- NOTE | 2018-04-11 11:12 | NUR ---
DAYANA called the pt's sister in law, Karissa Patterson ([phone]), and informed her that the pt will be discharged tomorrow. She stated that she would come and pick him up around 12 and take him to the Board and Care.
--- NOTE | 2018-04-11 12:02 | NUR ---
Karsisa Patterson ([phone]), pts sister in law, called the SW and stated that she spoke to the silk screen painter of the Board and Care and she stated that the family would have to hire an relocation specialist since the pt is still not sleeping the appropriate amount of hours a night. She stated that the family cannot afford that for long and asked the SW to find an alternative placement.
--- NOTE | 2018-04-11 12:04 | NUR ---
SW faxed a referral to [facility] with attention to Kelsey to the fax number: [phone]. DAYANA will follow up on the referral.
--- NOTE | 2018-04-11 13:29 | NUR ---
Denia ([phone]) from [facility] called the SW and stated that the pt cannot be accepted to their facility because he does not have any SNF days available.
--- NOTE | 2018-04-11 13:31 | NUR ---
DAYANA faxed a referral to [facility] with attention to Marika to the fax number: [phone].
--- NOTE | 2018-04-11 15:26 | NUR ---
SW called the pt's sister in law, Karissa Patterson ([phone]), and informed her that [facility] is working on finding placement for the agency and the SW informed her to give them a call back at [phone].
[2018-04-11 16:00] VITALS: BP 121/73
[2018-04-11] MEDS: RIVAROXABAN 10 MG TABLET PO SCH (16:36)
[2018-04-11] MEDS ORDERED: clonazePAM 0.5 MG TABLET PO PRN (19:30)
[2018-04-11 20:00] VITALS: BP 150/80
[2018-04-11] MEDS: SIMVASTATIN 20 MG TABLET PO SCH (21:12)
[2018-04-11] MEDS: clonazePAM 1 MG TABLET PO SCH (21:12)
[2018-04-11] MEDS ORDERED: TRAZODONE 50 MG TABLET PO SCH (22:00)
--- NOTE | 2018-04-12 06:00 | NUR ---
RN NOTES NOTED PATIENT MOVED LEFT ARM RANDOMLY WHILE SITTING ON FANG CHAIR AND ACUIRED OPEN ECCHYMOSIS ON LEFT ARM. TAKEN PICTURES AND POSTED ON CHART, CLEANSED WOUND AND APPLIED MAPILEX DRESSING. WOUND CONSULT ORDERED
[2018-04-12 08:00] VITALS: BP 121/64
[2018-04-12] MEDS: MULTIVITAMINS,THERAGRAN 1 UDTAB TABLET PO SCH (09:42)
--- NOTE | 2018-04-12 09:42 | NUR ---
DAYANA called the pt's sister in law, Karissa Patterson ([phone]), and informed her that the pt is not going to be discharged today and instead will be discharged on Sunday. The current plan is to send the pt back to [facility] and get a caregiver overnight until a new Board and Care placement becomes available.
[2018-04-12] MEDS: CIPROFLOXACIN HCL 500 MG TABLET PO SCH ×2 (09:43→22:17)
[2018-04-12] MEDS: OLANZAPINE 2.5 MG TABLET PO SCH ×2 (09:43→17:56)
[2018-04-12] MEDS: DOCUSATE SODIUM 100 MG CAPSULE PO SCH (09:43)
[2018-04-12] MEDS: ESCITALOPRAM OXALATE (10 MG) 10 MG TABLET PO SCH (09:43)
[2018-04-12] MEDS: AMLODIPINE BESYLATE 5 MG TABLET PO SCH (09:44)
[2018-04-12] MEDS: RIVASTIGMINE TARTRATE 1.5 MG CAPSULE PO SCH ×2 (09:44→17:56)
[2018-04-12] MEDS: HYDROCHLOROTHIAZIDE 25 MG TABLET PO SCH (09:45)
[2018-04-12] MEDS: LISINOPRIL (20MG) 20 MG TABLET PO SCH (09:45)
--- NOTE | 2018-04-12 10:26 | NUR ---
WOUND CARE CONSULT: PT PRESENTS WITH LEFT ARM SKIN TEAR. PT VERY DROWSY AT THIS TIME. SKIN ASSESSMENT LIMITED TO ARMS AT THIS TIME DUE TO PREVIOUS AGITATION PER NURSING STAFF. RECOMMENDATIONS MADE FOR WOUND CARE AND SKIN PROTECTION. DISCUSSED WITH NURSING STAFF. WILL SEE PRN. GOMEZ IN AGREEMENT WITH PLAN OF CARE. Addendum: 04/12/18 at 1028 by LIA PICKETT WNDNU Amended: Links added.
[2018-04-12] MEDS ORDERED: Z GUARD REMEDY 2 OZ OINT TP PRN (10:30)
[2018-04-12 16:00] VITALS: BP 109/74
[2018-04-12] MEDS: RIVAROXABAN 10 MG TABLET PO SCH (17:58)
--- NOTE | 2018-04-12 19:23 | NUR ---
GPS RN NOTE, RECEIVED PATIENT AWAKE AND IN BED NO S/S OR COMPLAINTS OF PAIN AT THIS TIME. PATIENT IS DISPLAYING NO S/S OF APPARENT DISTRESS AT THIS TIME. PATIENT BREATHING IS UNLABORED WITH EQUAL RISE AND FALL OF THE CHEST. PATIENT HAS A ONE TO ONE SITTER FOR HIGH FALL RISK. PATIENT IS ALERT AND ORIENTED X 1 ON ROOM AIR WITH A SPO2 0F 95%. PATIENT IS MED COMPLIANT, DISORGANIZED, ANXIOUS, COOPERATIVE, CONFUSED AT TIME, AND NEEDS REORIENTATION. PATIENT DENIES SUICIDE AND HOMICIDAL IDEATIONS AT THIS TIME. PATIENT ASSISTED WITH TURNING AND REPOSITIONING Q2HR AND PRN FOR COMFORT AND CIRCULATION. PATIENT HAS NO NEEDS AT THIS TIME. PATIENT EDUCATED ON THE USE OF THE CALL ONEIL. PATIENT BED SIDE RAILS ARE UP X 2 FOR SAFETY, BED IS LOCKED AND LOW. WILL CONTINUE TO MONITOR AND MAINTAIN SAFETY Q15 MIN WITH THE HELP OF STAFF.
[2018-04-12 20:00] VITALS: BP 122/71
[2018-04-12] MEDS: SIMVASTATIN 20 MG TABLET PO SCH (22:16)
[2018-04-12] MEDS: TRAZODONE 50 MG TABLET PO SCH (22:16)
[2018-04-12] MEDS: clonazePAM 1 MG TABLET PO SCH (22:16)
[2018-04-13 08:00] VITALS: BP 112/65
[2018-04-13] MEDS: HYDROCHLOROTHIAZIDE 25 MG TABLET PO SCH (09:00)
[2018-04-13] MEDS: AMLODIPINE BESYLATE 5 MG TABLET PO SCH (09:00)
[2018-04-13] MEDS: LISINOPRIL (20MG) 20 MG TABLET PO SCH (09:00)
[2018-04-13] MEDS: CIPROFLOXACIN HCL 500 MG TABLET PO SCH ×2 (09:03→21:07)
[2018-04-13] MEDS: DOCUSATE SODIUM 100 MG CAPSULE PO SCH (09:03)
[2018-04-13] MEDS: OLANZAPINE 2.5 MG TABLET PO SCH ×2 (09:03→16:16)
[2018-04-13] MEDS: ESCITALOPRAM OXALATE (10 MG) 10 MG TABLET PO SCH (09:03)
[2018-04-13] MEDS: MULTIVITAMINS,THERAGRAN 1 UDTAB TABLET PO SCH (09:04)
[2018-04-13] MEDS: RIVASTIGMINE TARTRATE 1.5 MG CAPSULE PO SCH ×2 (09:07→16:16)
[2018-04-13 16:00] VITALS: BP 115/72
[2018-04-13] MEDS: RIVAROXABAN 10 MG TABLET PO SCH (16:16)
[2018-04-13 20:00] VITALS: BP 130/67
[2018-04-13] MEDS: TRAZODONE 50 MG TABLET PO SCH (21:40)
[2018-04-13] MEDS: SIMVASTATIN 20 MG TABLET PO SCH (21:41)
[2018-04-13] MEDS: clonazePAM 1 MG TABLET PO SCH (21:47)
[2018-04-14 08:00] VITALS: BP 105/64
[2018-04-14] MEDS: AMLODIPINE BESYLATE 5 MG TABLET PO SCH (09:00)
[2018-04-14] MEDS: HYDROCHLOROTHIAZIDE 25 MG TABLET PO SCH (09:00)
[2018-04-14] MEDS: LISINOPRIL (20MG) 20 MG TABLET PO SCH (09:00)
[2018-04-14] MEDS: OLANZAPINE 2.5 MG TABLET PO SCH ×2 (09:02→18:03)
[2018-04-14] MEDS: CIPROFLOXACIN HCL 500 MG TABLET PO SCH ×2 (09:02→21:11)
[2018-04-14] MEDS: ESCITALOPRAM OXALATE (10 MG) 10 MG TABLET PO SCH (09:02)
[2018-04-14] MEDS: MULTIVITAMINS,THERAGRAN 1 UDTAB TABLET PO SCH (09:03)
[2018-04-14] MEDS: RIVASTIGMINE TARTRATE 1.5 MG CAPSULE PO SCH ×2 (09:03→18:04)
[2018-04-14] MEDS: DOCUSATE SODIUM 100 MG CAPSULE PO SCH (09:03)
[2018-04-14 16:00] VITALS: BP 120/89
[2018-04-14] MEDS: RIVAROXABAN 10 MG TABLET PO SCH (18:03)
[2018-04-14 20:00] VITALS: BP 141/83
[2018-04-14] MEDS: TRAZODONE 50 MG TABLET PO SCH (21:11)
[2018-04-14] MEDS: SIMVASTATIN 20 MG TABLET PO SCH (21:11)
[2018-04-14] MEDS: clonazePAM 1 MG TABLET PO SCH (21:59)
[2018-04-15 08:00] VITALS: BP 152/85
[2018-04-15] MEDS: HYDROCHLOROTHIAZIDE 25 MG TABLET PO SCH (09:00)
[2018-04-15] MEDS: LISINOPRIL (20MG) 20 MG TABLET PO SCH (09:00)
[2018-04-15 09:12] VITALS: BP 152/85
[2018-04-15] MEDS: DOCUSATE SODIUM 100 MG CAPSULE PO SCH (09:12)
[2018-04-15] MEDS: AMLODIPINE BESYLATE 5 MG TABLET PO SCH (09:12)
[2018-04-15] MEDS: RIVASTIGMINE TARTRATE 1.5 MG CAPSULE PO SCH (09:12)
[2018-04-15] MEDS: ESCITALOPRAM OXALATE (10 MG) 10 MG TABLET PO SCH (09:13)
[2018-04-15] MEDS: OLANZAPINE 2.5 MG TABLET PO SCH (09:13)
[2018-04-15] MEDS: MULTIVITAMINS,THERAGRAN 1 UDTAB TABLET PO SCH (09:13)
[2018-04-15] MEDS: CIPROFLOXACIN HCL 500 MG TABLET PO SCH (09:34)
--- NOTE | 2018-04-15 12:30 | NUR ---
GPS TRANSITIONAL STUDIES INSTRUCTOR NOTE PT DISCHARGE TO [facility] IN STABLE CONDITION, P/U BY SISTER IN LAW PARRY. PT IS A/O X2, AFEBRILE. RESPIRATIONS ARE EVEN AND UNLABORED, NOT IN ANY ACUTE DISTRESS NOTED. PT DENIES ANY PAIN, SOB, N/V. NO IV ACCESS. ABDOMEN IS SOFT AND NONDISTENDED, BOWEL SOUNDS ARE PRESENT IN ALL 4 QUADRANTS UPON AUSCULTATION. DENIES ANY BLADDER DISCOMFORT. PICTURES TAKEN OF SKIN AND PLACED IN CHART. DRESSING CHANGE DONE ORDERED. EXPLAINED DISCHARGE PAPERWORK TO PT AND SISTER IN LAW PARRY WITH VERBAL AND WRITTEN AGREEMENT. PT ACCOMPANIED TO VEHICLE WITH 1 STAFF ASSIST IN STABLE CONDITION. ALL BELONGINGS SENT WITH PT AND SIGNED.
--- NOTE | 2018-04-15 13:27 | NUR ---
DAYANA called the pt's sister in law, Karissa Patterson ([phone]), and informed her that the pt will be discharged today back to [facility]. She stated that was an acceptable plan and that they will look into other options if it becomes necessary. She stated that she would be able to pick the pt up around 1pm. She asked the SW to contact the flowers salesperson of the Board and Care and inform her that the pt would be returning to the facility today.
--- NOTE | 2018-04-15 13:30 | NUR ---
DAYANA called Iris ([phone]), [facility] Manager, and she stated that they will accept the pt and that he is sleeping an appropriate amount at this time. She stated that she wants the SW to fax the prescriptions to both the pharmacy and to the facility itself. DAYANA stated that she would call the facility and get their fax number.
--- NOTE | 2018-04-15 13:31 | NUR ---
DAYANA faxed the prescriptions to [facility] to the fax number: [phone].
--- NOTE | 2018-04-15 13:54 | NUR ---
Pts discharge paperwork was faxed to the office of Dr. Balaji Tejeda to the fax number: [phone].
--- NOTE | 2018-04-15 13:54 | NUR ---
Discharge Note: Pt was discharged to [facility] ([facility] [place] [address] [place] [address]; ([phone]). Pts sister in law, Karissa Bains ([phone]), picked up the pt around 1pm and she took him to the facility so she was notified of the discharge. Pts prescription was faxed to [facility] to the fax number: [phone]. Pts note were faxed to [facility] to the fax number: [phone]. Upon discharge, the pt appeared to be in a euthymic mood and presented with a calm affect. Pt denied both suicidal and homicidal ideation as well as auditory and visual hallucinations. Pt will be under the care of his psychiatrist, Dr. 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 Balaji Tejeda, located at [address] [place] [address]; . Pts discharge paperwork was faxed to the office of Dr. Balaji Tejeda to the fax number: [phone].
== END 2018-04-15 12:30 | disposition home or self-care (01) | DRG 885 ==
LOC: ER 20:08 → GPS 21:57
PROVIDERS: ADMIT Psychiatry & Neurology Psychiatry; ATTEND Psychiatry & Neurology Psychiatry
DX: F29 Unspecified psychosis not due to a substance or known physiological condition (principal); F03.91 Unspecified dementia, unspecified severity, with behavioral disturbance; N39.0 Urinary tract infection, site not specified; E44.1 Mild protein-calorie malnutrition; L03.119 Cellulitis of unspecified part of limb; E78.5 Hyperlipidemia, unspecified; I48.91 Unspecified atrial fibrillation; G47.00 Insomnia, unspecified; B96.20 Unspecified Escherichia coli [E. coli] as the cause of diseases classified elsewhere; I10 Essential (primary) hypertension; D64.9 Anemia, unspecified; Z68.22 Body mass index [BMI] 22.0-22.9, adult; E86.0 Dehydration
CPT/HCPCS: 36415; 80048-TC; 80061-TC; 80076-TC; 80305; 81000-TC; 82565-TC; 85025-TC; 87081-TC; 87086-TC; 87186-TC; G0480